=== PATIENT | male | born 1935 | race Caucasian/White ===

== ENCOUNTER 2018-10-02 16:42 | Inpatient (IN) | payer MEDICARE ==
[2018-10-02] MEDS ORDERED: Atropine Sulfate 1 mg/10 ml Syringe ONE (17:05)
[2018-10-02 17:21] LABS: #Basophils 0.1 thou/uL (0.0-0.2); #Eosinphils 0.2 thou/uL (0.0-0.7); #Monocytes 0.8 thou/uL (0.11-0.59); #Neutrophils 3.3 thou/uL (1.40-6.50); %Basophils 1.7 % (0.0-1.0); %Eosinophils 2.7 % (0.0-10.0); %Lymphocytes 30.6 % (21.0-51.0); %Monocytes 12.8 % (0.0-10.0); %Neutrophils 52.2 % (42.0-75.0); Hemoglobin 16.3 g/dL (14.0-18.0); Mean Corpuscular HGB CONC 33.7 g/dL (32.0-36.0); Mean Corpuscular Volume 98.1 fL (78.0-98.0); Mean Platelet Volume 8.3 fL (7.4-10.4); Platelet Count 190 thou/uL (130-400); RBC Distribution Width 11.7 % (11.5-14.5); Red Blood Cell (RBC) Count 4.93 mill/uL (4.70-6.10); White Blood Cell (WBC) Count 6.4 thou/uL (4.8-10.8)
[2018-10-02 17:46] LABS: ALT (SGPT) 23 U/L (8-55); AST (SGOT) 40 U/L (5-34); Albumin 4.6 g/dL (3.4-4.8); Alkaline Phosphatase 81 U/L (40-150); Anion Gap 14 mmol/L (10-20); BUN (Urea Nitrogen) 28 mg/dL (8.4-25.7); Bilirubin, Total 1.2 mg/dL (0.2-1.2); CK (CPK) 557 U/L (30-200); Calc. Creatinine Clearance 0 mL/min (70-130); Carbon Dioxide 26 mmol/L (23-31); Chloride 103 mmol/L (98-107); Estimated GFR-MDRD 55; Globulin 2.7 g/dL (2.4-3.5); Glucose 100 mg/dL (83-110); Potassium 3.7 mmol/L (3.5-5.1); Protein, Total 7.3 g/dL (5.8-8.1); Sodium 139 mmol/L (136-145)
[2018-10-02 17:48] LABS: Troponin I Less than 0.010 ng/mL (< 0.028)
[2018-10-02 17:54] LABS: CKMB 14.6 ng/mL (0-6.6)
[2018-10-02] MEDS ORDERED: Acetaminophen 325 MG TAB PO PRN (18:47)
[2018-10-02] MEDS ORDERED: Atropine Sulfate 0.4 mg/1 ml Vial IVP PRN (18:49)
--- NOTE | 2018-10-02 19:42 | RAD ---
PORTABLE UPRIGHT FRONTAL CHEST RADIOGRAPH: 10/02/18 COMPARISON: 07/24/09 HISTORY: Bradycardia. FINDINGS: The patient is imaged in a lordotic position. Heart and mediastinal contours are stable. Mild increas ed linear interstitial density noted with no pneumothorax, pleural fluid, focal consolidation or alve olar edema. IMPRESSION: No focal consolidation or alveolar edema. POS: [facility]
[2018-10-02 19:56] LABS: Troponin I Less than 0.010 ng/mL (< 0.028)
[2018-10-02 19:58] LABS: CKMB 11.4 ng/mL (0-6.6); Critical Call CKMBM RESULT DECREASING
--- NOTE | 2018-10-02 22:21 | HP ---
HISTORY OF PRESENT ILLNESS: The patient is a very pleasant 83-year-old male with history of coronary artery disease status post stents x6, last stent about a year ago and also history of hypertension, who presents to the hospital with complaints of generalized weakness. The patient stated that he was in his good state of health yesterday; however, today he started having some generalized weakness, f elt unsteady and not like himself. Denied any palpitation, any chest pressure or chest pain or any d izziness. At this time, patient checked his blood pressure and found his heart rate to be in the 30s . He rechecked it again it was 31. At this time, the patient's brought him to the hospital for further evaluation. The patient stated that he did have some mild non lasting shortness of breath y esterday. He thought this was secondary to sinus issues and he took a nasal spray which resolved his problem. PAST MEDICAL HISTORY: Hypertension, coronary artery disease, stents x6, he has some chronic back kosta n. PAST SURGICAL HISTORY: He has had a hernia repair on the right side and stents. ALLERGIES: No known drug allergies. MEDICATIONS: He takes lisinopril and hydrochlorothiazide 10/12.5 mg daily, pantoprazole 40 mg daily, atorvastatin 20 mg daily, Plavix 75 mg daily, aspirin 81 mg daily. FAMILY HISTORY: No history of heart disease. Father lived to be at 101. SOCIAL HISTORY: Denies any alcohol use or drug use. He did smoke when he was 14; however, this was just socially. CODE STATUS: He is a FULL CODE per patient and patient's . REVIEW OF SYSTEMS: All negative except for the ones mentioned above in the HPI. PHYSICAL EXAMINATION: VITAL SIGNS: Temperature of 98.8, blood pressure 140/84 and his pulse is about 64 currently. GENERAL: He is awake, alert, oriented x3, does not appear in any distress. CARDIOVASCULAR: S1, S2 present. No murmurs, rubs, or gallops. LUNGS: Clear to auscultation, rhonchi or wheezes noted. ABDOMEN: Soft, nontender. Bowel sounds are present x2. EXTREMITIES: No edema. Pedal pulses are present x2. SKIN: No cuts, lesions, or bruises noted. NEUROLOGIC: Neurovascular kelley, no focal deficits noted. LABORATORY RESULTS: As of the following: WBC of 6.4, hemoglobin 16.3, hematocrit of 48.3, platelets of 190. Chemistry: Sodium of 139, potassium of 3.7, BUN of 20, creatinine 1.25. AST is mildly nisa vated at 40, ALT is 23. His CK-MB is 14.6. His troponin x1 is negative. He did have an EKG initial ly which indicated a very low voltage and bigeminy and indicated a possible left atrial enlargement. ED COURSE: The patient did receive atropine, which did increase his heart rate to about in the 90s. However, currently when I was in the room assessing the patient, he is going back down into the 60s. ASSESSMENT AND PLAN: The patient is a very pleasant 83-year-old male who presents to the hospital wi th complaints of generalized weakness. 1. Symptomatic bradycardia. We will admit the patient to IMCU since after the atropine his heart ra te now continues to dip down into the low 60s. He is currently asymptomatic. We will also order radha e atropine p.r.n. I did contact the single ending machine operator continuous crusher operator, who discussed the case with this patient. We will order an echocardiogram. We will trend the troponins. The patient currently is asymptomati c. He does not have any chest pain either and he is not feeling any weakness or any palpitations. 2. Coronary artery disease. We will continue patient's aspirin and Plavix. 3. Hyperlipidemia. We will also continue patient's statin. 4. Deep venous thrombosis prophylaxis. We will put patient on subcu heparin.
[2018-10-02] MEDS: Heparin 5,000 UNITS/ML VIAL SC SCH (23:08)
[2018-10-02] MEDS: Sodium Chloride 0.9% 1,000 ML IV SCH (23:08)
[2018-10-02] MEDS: Atorvastatin Calcium 20 MG TAB PO SCH (23:09)
[2018-10-02 23:24] LABS: Troponin I Less than 0.010 ng/mL (< 0.028)
[2018-10-02 23:25] LABS: CKMB 10.6 ng/mL (0-6.6); Critical Call CKMBM RESULT DECREASING
[2018-10-03 00:49] VITALS: BMI 23.0
[2018-10-03 04:58] LABS: #Basophils 0.1 thou/uL (0.0-0.2); #Eosinphils 0.2 thou/uL (0.0-0.7); #Lymphocytes 1.6 thou/uL (1.20-3.40); #Monocytes 0.6 thou/uL (0.11-0.59); #Neutrophils 2.6 thou/uL (1.40-6.50); %Basophils 1.5 % (0.0-1.0); %Lymphocytes 31.6 % (21.0-51.0); %Monocytes 11.7 % (0.0-10.0); %Neutrophils 51.1 % (42.0-75.0); Hemoglobin 14.8 g/dL (14.0-18.0); Mean Corpuscular HGB CONC 34.3 g/dL (32.0-36.0); Mean Corpuscular Hemoglobin 33.6 pg (27.0-31.0); Mean Platelet Volume 8.3 fL (7.4-10.4); Platelet Count 166 thou/uL (130-400); RBC Distribution Width 11.5 % (11.5-14.5); Red Blood Cell (RBC) Count 4.39 mill/uL (4.70-6.10); White Blood Cell (WBC) Count 5.1 thou/uL (4.8-10.8)
[2018-10-03 05:13] LABS: Anion Gap 10 mmol/L (10-20); BUN (Urea Nitrogen) 22 mg/dL (8.4-25.7); Calc. Creatinine Clearance 67 mL/min (70-130); Calcium 8.9 mg/dL (7.8-10.44); Carbon Dioxide 25 mmol/L (23-31); Chloride 107 mmol/L (98-107); Estimated GFR-MDRD 76; Glucose 91 mg/dL (83-110); Potassium 3.8 mmol/L (3.5-5.1); Sodium 138 mmol/L (136-145)
[2018-10-03] MEDS: Clopidogrel Bisulfate 75 MG TAB PO SCH (10:06)
[2018-10-03] MEDS: Heparin 5,000 UNITS/ML VIAL SC SCH ×3 (10:06→20:34)
--- NOTE | 2018-10-03 13:46 | PDOC.PN ---
- Subjective Encounter Start Date: 10/03/18 Encounter Start Time: 11:15 Subjective: pt up in bed no complains,no event in am - Objective Resuscitation Status: Resuscitation Status FULL:Full Resuscitation Vital Signs & Weight: Vital Signs (12 hours) Temp Pulse Resp BP Pulse Ox 10/03/18 12:05 97.6 F 64 21 H 137/79 95 10/03/18 08:00 96 10/03/18 07:36 97.8 F 55 L 19 144/73 H 96 10/03/18 04:35 98.1 F 54 L 14 131/71 95 Weight Weight 174 lb 4.8 oz I&O: 10/02/18 10/03/18 10/04/18 06:59 06:59 06:59 Intake Total 502 720 Output Total 600 Balance -98 720 Result Diagrams: 10/03/18 04:18 10/03/18 04:19 Phys Exam - Physical Examination Neck: no nodes, no JVD, supple, full ROM Respiratory: no wheezing, no rales, no rhonchi, wheezing present, clear to auscultation bilateral Cardiovascular: RRR, no significant murmur, no rub, gallop, irregular Gastrointestinal: soft, non-tender, no distention, positive bowel sounds Dx/Plan (1) Bradycardia Code(s): R00.1 - BRADYCARDIA, UNSPECIFIED Status: Acute (2) HTN (hypertension) Code(s): I10 - ESSENTIAL (PRIMARY) HYPERTENSION Status: Acute - Plan pt going for pacemaker placement -: will hold his bp meds for now -: echo pending * . Review of Systems - Review of Systems Respiratory: negative: Cough, Dry, Shortness of Breath, Hemoptysis, SOB with Excertion, Pleuritic Pain, Sputum, Wheezing Cardiovascular: negative: chest pain, palpitations, orthopnea, paroxysmal nocturnal dyspnea, edema, light headedness, other Gastrointestinal: negative: Nausea, Vomiting, Abdominal Pain, Diarrhea, Constipation, Melena, Hematochezia, Other Genitourinary: negative: Dysuria, Frequency, Incontinence, Hematuria, Retention , Other - Medications/Allergies Allergies/Adverse Reactions: Allergies Allergy/AdvReac Type Severity Reaction Status Date / Time No Known Drug Allergies Allergy Verified 10/03/18 00:54 Medications: Current Medications Acetaminophen (Tylenol) 650 mg PO Q4H PRN PRN Reason: Headache/Fever/Mild Pain (1-3) Aspirin (Aspirin Chewable) 81 mg PO DAILY [facility] Last Admin: 10/03/18 10:06 Dose: 81 mg Atorvastatin Calcium (Lipitor) 20 mg PO HS [facility] Last Admin: 10/02/18 23:09 Dose: 20 mg Atropine Sulfate (Atropine) 0.4 mg IVP Q4H PRN PRN Reason: Cardiac Arrythmia Clopidogrel Bisulfate (Plavix) 75 mg PO DAILY [facility] Last Admin: 10/03/18 10:06 Dose: 75 mg Heparin Sodium (Porcine) (Heparin) 5,000 units SC TID [facility] Last Admin: 10/03/18 10:06 Dose: 5,000 units Sodium Chloride (Normal Saline 0.9%) 1,000 mls @ 50 mls/hr IV .Q20H [facility] Last Admin: 10/02/18 23:08 Dose: 1,000 mls Sodium Chloride (Flush - Normal Saline) 10 ml IVF Q12HR [facility] Last Admin: 10/03/18 10:08 Dose: Not Given Sodium Chloride (Flush - Normal Saline) 10 ml IVF PRN PRN PRN Reason: Saline Flush Sodium Chloride (Flush - Normal Saline) 10 ml IVF Q12HR [facility] Sodium Chloride (Flush - Normal Saline) 10 ml IVF PRN PRN PRN Reason: Saline Flush
--- NOTE | 2018-10-03 14:26 | CON ---
DATE OF CONSULTATION: 10/03/2018 DATE OF ADMISSION: 10/02/2018 INDICATION FOR CONSULTATION: An 83-year-old gentleman with symptomatic bradycardia. HISTORY OF PRESENT ILLNESS: This is a very pleasant 83-year-old gentleman, who has not been feeling well for the last couple of days slow, had some shortness of breath. He has felt just weak. Pricilla lan noticed it at home, he took his heart rate, and his heart rate was in the 30s. He then prese nted to the emergency room. He does have a history of myocardial infarction in the past and undergon e angioplasty and stent placement at age 66 and most recent stents were approximately 1 year ago. He has previously been followed in [place] by solar hot water installer, Dr. Hernandes, but has moved here several months ago and has not yet seen a solar hot water installer. On arrival here, his laboratory data did show an nisa vated CPK, but the cardiac enzyme, the troponin I, was negative. The MB was 14.6 and decreased to 11 .4 and then now is down to 10.6. His CK was 557. He denies any chest pain. His EKG does not show a ny acute ST-segment changes, but does show a sinus rhythm with a bigeminal-type pattern with PVCs. T his morning, his EKG shows more of a sinus rhythm with just occasional PVCs. Heart rates in the 60s. PAST MEDICAL HISTORY: Significant for the myocardial infarction, angioplasty, and stent placements. We are uncertain as to which vessels underwent angioplasty and stent placement. We will try to obta in those records. He has had a hernia repair. He has gastroesophageal reflux disease, hiatal hernia , benign prostatic hypertrophy. He has history of hypertension and hypercholesterolemia. MEDICATIONS: Include lisinopril/hydrochlorothiazide, Protonix, atorvastatin, Plavix, aspirin, and Co Q10. SOCIAL HISTORY: He has no history of alcohol or tobacco abuse. He is retired. FAMILY HISTORY: Noncontributory. ALLERGIES: None. REVIEW OF SYSTEMS: He wears glasses, has dentures, has sinus problems. Otherwise, 12-point review o f systems is unremarkable except what was noted in the history of present illness. PHYSICAL EXAMINATION: GENERAL: Reveals a very pleasant, well-developed, well-nourished gentleman, who is in no acute distr ess at this time. He is eating breakfast and he had no complaints of chest pain, dizziness, or light headed. VITAL SIGNS: Blood pressure is 144/73, heart rate in the 50s and 60s and shows a sinus rhythm with o ccasional PVCs, respiratory rate is 14-19, O2 saturation 96%. He is afebrile. HEENT EXAM: Shows head to be normocephalic and atraumatic. Carotid pulses are present. I did not h ear any bruits. CHEST: Clear to auscultation without rales, rhonchi, or wheezing. CARDIOVASCULAR: Exam reveals a bradycardia, regular rhythm with occasional ectopy. There were no gr oss murmurs, heaves, thrills, bruits, or rubs. ABDOMINAL EXAM: Soft and nontender with positive bowel sounds. No organomegaly or masses noted. Fe moral pulses are present. EXTREMITIES: Show no clubbing, cyanosis or edema. Pedal pulses are present. NEUROLOGIC: The patient is fully intact. SKIN: Warm and dry. EKG shows sinus bradycardia as noted above with bigeminal PVCs without evidence of ischemia. ASSESSMENT AND PLAN: 1. We will follow the patient very carefully. He most likely will need to undergo pacemaker inserti on. He was not on any beta blockers or any other medicines. I am going to admit making him have sig nificant bradycardia. He appears to have symptomatic bradycardia. We will obtain an echocardiogram with ejection fraction is less than 35%-40% and he best be served by undergoing AICD if he has a decr ease in left ventricular function. If not, then most likely he will need to just undergo pacemaker i nsertion due to the symptomatic bradycardia. His AK interval is not very prolonged, so hopefully, th e patient would have atrial pacing and ventricular sensing during the bradycardia. We reviewed his m edications and further recommendations will depend on the echocardiogram. 2. History of hypertension. This is under good control at this time. We will continue the present medications. 3. History of hypercholesterolemia. He is on Lipitor. Uncertain as to whether or not the elevated CK may be due to some type of myopathy or muscle breakdown due to the statins. We may need to hold h is medication to see how he does, but did not have any particular reason. He was not doing any signi ficant physical exertion to cause an elevated CK with, but the cardiac enzyme, the troponin I, remain s negative. 2. History of gastroesophageal reflux disease. We will continue his Protonix. Further recommendati ons will depend on the results of the echocardiogram. We will try to obtain records from his prior c ardiologist in [place].
[2018-10-03] MEDS ORDERED: CEFAZOLIN 1 GM VIAL ONE (14:30)
[2018-10-03] MEDS ORDERED: Lidocaine 1% (PF) 30 ML VIAL ONE (14:30)
[2018-10-03] MEDS ORDERED: CEFAZOLIN 2 GM/50 ML BAG ONE (14:30)
[2018-10-03] MEDS ORDERED: Gentamicin 80 MG/2 ML VIAL ONE (14:30)
[2018-10-03] MEDS: Sodium Chloride 0.9% 1,000 ML IV SCH (16:28)
[2018-10-03] MEDS ORDERED: Acetaminophen/Codeine 30-300mg Tablet PO PRN (17:59)
--- NOTE | 2018-10-03 18:27 | RAD ---
FRONTAL RADIOGRAPH CHEST: 10/03/18 COMPARISON: 10/02/18. HISTORY: Evaluate chest following cardiac device placement. FINDINGS: New left subclavian dual lead transvenous pacing device present with leads overlying the region of th e right atrium and the right ventricle. No pneumothorax or pleural fluid. No focal consolidation or alveolar edema. There is degenerative change involving bilateral shoulder joints, right greater than left. IMPRESSION: New dual lead transvenous pacing device. No pneumothorax or evidence of pulmonary edema. POS: [facility]
[2018-10-03] MEDS: Atorvastatin Calcium 20 MG TAB PO SCH (20:34)
[2018-10-04] MEDS: Sodium Chloride 0.9% 1,000 ML IV SCH (07:50)
[2018-10-04] MEDS: Heparin 5,000 UNITS/ML VIAL SC SCH (08:58)
[2018-10-04] MEDS: Clopidogrel Bisulfate 75 MG TAB PO SCH (08:58)
[2018-10-04 11:12] VITALS: TEMP 98.7
[2018-10-04 11:13] VITALS: BP 125/78
--- NOTE | 2018-10-05 10:32 | DIS ---
DATE OF ADMISSION: 10/02/2018 DATE OF DISCHARGE: 10/04/2018 DISCHARGE DIAGNOSES: 1. Symptomatic bradycardia. 2. Hypertension. HOSPITAL COURSE: The patient is a very pleasant 83-year-old male, who initially presented to the [facility] with feeling generalized weakness and also was found to have a heart rate in the 30s at home. The patient was then treated with atropine in the ER. His heart rate went up to the 70s and the 80s. He was monitored overnight and Cardiology was consulted. The patient had an echocardiogram, which indicated an EF of 50%-55%. Left atrium with [id number] dilation. The patient underwent a pac emaker placement on 10/03/2018 and he will be discharged home. He will be followed up with primary c are and Cardiology as outpatient. His medications are as of the following: Aspirin 81 mg daily, Cynthia vix 75 mg daily, atorvastatin 20 mg daily, Protonix 40 mg daily, Toprol-XL 50 mg daily. This is per Cardiology. Lisinopril 5 mg daily. Patient has been seen and examined. Vital signs are stable. I have discussed the case with patient and the patient's , who is at the bedside. The patient will be given a sling, and again, he will follow up with his primary and also with Cardiology as an outpa tient.
--- NOTE | 2018-10-07 08:17 | EKG ---
Test Reason : Blood Pressure : / mmHG Vent. Rate : 073 BPM Atrial Rate : 073 BPM P-R Int : 248 ms QRS Dur : 098 ms QT Int : 374 ms P-R-T Axes : 031 026 031 degrees QTc Int : 412 ms Atrial-paced rhythm with prolonged AV conduction Abnormal ECG When compared with ECG of 24-JUL-2009 08:12, Electronic atrial pacemaker has replaced Sinus rhythm Confirmed by DR. Gagan MOODY ([id number]) on 10/07/2018 8:17:09 AM Referred By: BLOSSOM Confirmed By:DR. Gagan MOODY
== END 2018-10-04 15:09 | disposition home or self-care (01) | DRG 244 ==
LOC: ERS 16:42 → IMCU/EMU 21:36 → 2NO 10-03 17:21
PROVIDERS: ADMIT Internal Medicine; ATTEND Internal Medicine
PROC: 0JH606Z Insertion of Pacemaker, Dual Chamber into Chest Subcutaneous Tissue and Fascia, Open Approach (ICD-10-PCS; principal; 2018-10-03)
PROC: 02H63JZ Insertion of Pacemaker Lead into Right Atrium, Percutaneous Approach (ICD-10-PCS; 2018-10-03)
PROC: 02HK3JZ Insertion of Pacemaker Lead into Right Ventricle, Percutaneous Approach (ICD-10-PCS; 2018-10-03)
DX: R00.1 Bradycardia, unspecified (principal); I10 Essential (primary) hypertension; I25.10 Atherosclerotic heart disease of native coronary artery without angina pectoris; Z95.5 Presence of coronary angioplasty implant and graft; G89.29 Other chronic pain; M54.9 Dorsalgia, unspecified; Z79.02 Long term (current) use of antithrombotics/antiplatelets; Z79.899 Other long term (current) drug therapy; Z79.82 Long term (current) use of aspirin; E78.5 Hyperlipidemia, unspecified; I25.2 Old myocardial infarction; K21.9 Gastro-esophageal reflux disease without esophagitis; K44.9 Diaphragmatic hernia without obstruction or gangrene; N40.0 Benign prostatic hyperplasia without lower urinary tract symptoms
CPT/HCPCS: 33208; 36415; 71045; 80048; 80053; 82553; 83880; 84484; 85025; 93005; 93010; 93306; 93798; 96361; 96374; C1785; C1898; J0461; J0690; J1580; J1644; J2001

== ENCOUNTER 2018-10-05 09:49 | Emergency (ER) | payer MEDICARE ==
[2018-10-05 10:36] LABS: #Eosinphils 0.1 thou/uL (0.0-0.7); #Monocytes 0.6 thou/uL (0.11-0.59); #Neutrophils 3.2 thou/uL (1.40-6.50); %Eosinophils 2.2 % (0.0-10.0); %Lymphocytes 19.7 % (21.0-51.0); %Monocytes 12.8 % (0.0-10.0); %Neutrophils 64.3 % (42.0-75.0); Hemoglobin 15.8 g/dL (14.0-18.0); Mean Corpuscular HGB CONC 33.5 g/dL (32.0-36.0); Mean Corpuscular Hemoglobin 33.2 pg (27.0-31.0); Mean Corpuscular Volume 99.2 fL (78.0-98.0); Mean Platelet Volume 8.4 fL (7.4-10.4); Platelet Count 148 thou/uL (130-400); RBC Distribution Width 11.5 % (11.5-14.5); Red Blood Cell (RBC) Count 4.75 mill/uL (4.70-6.10); White Blood Cell (WBC) Count 4.9 thou/uL (4.8-10.8)
[2018-10-05 10:58] LABS: ALT (SGPT) 17 U/L (8-55); AST (SGOT) 24 U/L (5-34); Albumin 4.1 g/dL (3.4-4.8); Alkaline Phosphatase 80 U/L (40-150); Anion Gap 11 mmol/L (10-20); BUN (Urea Nitrogen) 18 mg/dL (8.4-25.7); Bilirubin, Total 0.9 mg/dL (0.2-1.2); Calc. Creatinine Clearance 0 mL/min (70-130); Calcium 9.4 mg/dL (7.8-10.44); Carbon Dioxide 25 mmol/L (23-31); Chloride 107 mmol/L (98-107); Estimated GFR-MDRD 68; Globulin 2.6 g/dL (2.4-3.5); Glucose 105 mg/dL (83-110); Protein, Total 6.7 g/dL (5.8-8.1); Sodium 139 mmol/L (136-145)
[2018-10-05 11:02] LABS: Troponin I Less than 0.010 ng/mL (< 0.028)
[2018-10-05 11:14] LABS: CKMB 6.7 ng/mL (0-6.6); Critical Call CKMBM RESULT DECREASING
--- NOTE | 2018-10-05 12:49 | RAD ---
PORTABLE CHEST 1 VIEW: DATE: 10/05/2018. TIME: 9:21 a.m. HISTORY: Chest pain, pacemaker placement. FINDINGS: Comparison is made with the exam of 10/03/2018. Left-sided pacemaker device remains in place. The heart size is normal. The aorta is tortuous. The lungs are expanded without focal areas of consolidation, pneumothoraces, or pleural effusions. IMPRESSION: No acute process. POS: [facility]
== END 2018-10-05 13:38 | disposition home or self-care (01) ==
LOC: ERS 09:49
DX: T82.9XXA Unspecified complication of cardiac and vascular prosthetic device, implant and graft, initial encounter (principal); R00.1 Bradycardia, unspecified; Z95.0 Presence of cardiac pacemaker; I10 Essential (primary) hypertension; I25.2 Old myocardial infarction; N40.0 Benign prostatic hyperplasia without lower urinary tract symptoms; Z79.82 Long term (current) use of aspirin; Z79.899 Other long term (current) drug therapy
CPT/HCPCS: 71045; 80053; 82553; 84484; 85025; 93005

== ENCOUNTER 2018-11-09 11:55 | Emergency (ER) | payer MEDICARE ==
[2018-11-09 12:35] LABS: Bilirubin Small (Negative); Blood, Urine Large (Negative); Clarity TURBID (Clear); Glucose, Urine (Dipstick) Negative (Negative); Leukocyte Small (Negative); Nitrite Negative (Negative); Protein, Urine (Dipstick) 30 mg/dL (Neg-Trace); Specific Gravity, Urine 1.021 (1.002-1.036); Urobilinogen 0.2 mg/dL (0.2-1.0); pH, Urine 5.5 (5.0-9.0)
[2018-11-09 12:37] LABS: Bacteria/HPF None Seen HPF (None Seen); Hyaline Casts/LPF 0-3 HYALINE CAST LPF (0-3 Hyaline); RBC/HPF GREATER THAN 50-TNTC HPF (0-3); Squamous Epithelial 0-3 HPF (0-3)
== END 2018-11-09 13:30 | disposition home or self-care (01) ==
LOC: ERS 11:55
DX: R31.9 Hematuria, unspecified (principal); E78.5 Hyperlipidemia, unspecified; I25.2 Old myocardial infarction; N40.0 Benign prostatic hyperplasia without lower urinary tract symptoms; Z79.82 Long term (current) use of aspirin; Z79.899 Other long term (current) drug therapy
CPT/HCPCS: 81003; 81015

== ENCOUNTER 2018-11-09 17:44 | Emergency (ER) | payer MEDICARE ==
[2018-11-09 18:58] LABS: Hemoglobin 14.9 g/dL (14.0-18.0); Mean Corpuscular Hemoglobin 34.3 pg (27.0-31.0); Mean Corpuscular Volume 98.2 fL (78.0-98.0); Mean Platelet Volume 7.8 fL (7.4-10.4); Platelet Count 157 thou/uL (130-400); RBC Distribution Width 11.8 % (11.5-14.5); Red Blood Cell (RBC) Count 4.34 mill/uL (4.70-6.10); White Blood Cell (WBC) Count 6.2 thou/uL (4.8-10.8)
[2018-11-09 19:06] LABS: Anion Gap 11 mmol/L (10-20); BUN (Urea Nitrogen) 19 mg/dL (8.4-25.7); Calc. Creatinine Clearance 0 mL/min (70-130); Calcium 9.1 mg/dL (7.8-10.44); Carbon Dioxide 24 mmol/L (23-31); Chloride 105 mmol/L (98-107); Estimated GFR-MDRD 68; Glucose 99 mg/dL (83-110); Potassium 4.3 mmol/L (3.5-5.1); Sodium 136 mmol/L (136-145)
[2018-11-09 19:22] LABS: Lymphocytes 10 % (21-51); MDiff Complete? YES; Monocytes 5 % (0-10); Neutrophil 85 % (42-75); PLT Morphology Comment Appears Adequate
--- NOTE | 2018-11-09 21:13 | CT ---
CT ABDOMEN AND PELVIS WITH CONTRAST: Comparison: None. History: Hematuria. Technique: Multiple contiguous axial images were obtained in a CT of the abdomen and pelvis with cont rast. Coronal reformats were performed. FINDINGS: There are hyperdensities in the kidneys measuring up to 5.7 cm in size which represent cysts. There a ppear to be nonobstructing calcifications in the lower pole of the left kidney measuring up to 5 mm i n size. No calcifications are seen in either ureter or urinary bladder. The urinary bladder is unrema rkable. The liver, gallbladder, adrenal glands, spleen, and pancreas are unremarkable. There are scattered diverticula in the colon. The small bowel is unremarkable. Atherosclerotic calcif ications are seen in the aorta. There is a well circumscribed low density mass in the right retroperi toneum with a mean Hounsfield unit value of 10. These are nonspecific but could represent an enlarged lymph node. Alternatively, this could represent diverticulum emanating from the duodenum. Degenerative changes are seen in the spine. The visualized inferior thorax and abdominal wall soft ti ssues are unremarkable. IMPRESSION: 1. Bilateral renal cysts. 2. Diverticulosis. 3. Nonspecific low density retroperitoneal mass. This could represent an enlarged lymph node or a div erticulum emanating from small bowel. POS: [facility]
== END 2018-11-09 20:47 | disposition home or self-care (01) ==
LOC: ERS 17:44
DX: N28.1 Cyst of kidney, acquired (principal); N20.0 Calculus of kidney; E78.5 Hyperlipidemia, unspecified; I10 Essential (primary) hypertension; I25.2 Old myocardial infarction; N40.0 Benign prostatic hyperplasia without lower urinary tract symptoms; Z79.82 Long term (current) use of aspirin; Z79.899 Other long term (current) drug therapy
CPT/HCPCS: 36415; 74177; 80048; 81003; 81015; 85007; 85027; 99283

== ENCOUNTER 2019-02-12 16:10 | Outpatient (CLI) | payer MEDICARE ==
--- NOTE | 2019-02-12 16:35 | RAD ---
FExam: 3 views of lumbar spine HISTORY: Months of low back pain, running down the left leg. COMPARISON: None FINDINGS: 6 lumbar type vertebral bodies. Lumbar spine vertebral body height is maintained. No fractu re. Moderate to severe degenerative disc disease at L5-L6. There is vacuum disc phenomenon. Mild hype rtrophic changes in the posterior elements at L5-L6 and L6-S1. Vacuum disc phenomenon at the L1-L2 level. Loss of disc space height and osteophyte formation in the distal thoracic spine. No spondylolisthesis or spondylolysis. IMPRESSION: Degenerative changes of lumbar spine as above. MRI if clinically warranted.
--- NOTE | 2019-02-12 16:59 | RAD ---
LEFT HIP TWO VIEWS: 02/12/19 INDICATION: Left hip pain for six months. COMPARISON: None. FINDINGS: There is mild degenerative arthrosis of the left hip. No acute fracture or subluxation is evident. IMPRESSION: No acute osseous abnormality. POS: [facility]
== END 2019-02-12 16:11 | disposition home or self-care (01) ==
LOC: BICRAD 16:10
PROVIDERS: ATTEND Family Medicine
DX: M54.5 Low back pain (principal); M25.552 Pain in left hip; M47.816 Spondylosis without myelopathy or radiculopathy, lumbar region
CPT/HCPCS: 72100

== ENCOUNTER 2019-04-13 10:17 | Outpatient (CLI) | payer MEDICARE ==
--- NOTE | 2019-04-13 14:27 | NM ---
NM Bone Scan STANDARD: 04/13/2019 11:00 AM CLINICAL INDICATION: Prostate cancer. COMPARISON: None. RADIOPHARMACEUTICAL: 25 mCi Tc 99M MDP FINDINGS: Bone lesions: Focal abnormal increased radiotracer activity localizes to the right shoulder. There is abnormal increased scintigraphic activity at the medial aspect of the right foot. Other findings: Degenerative activity is present at the axial and appendicular skeleton. IMPRESSION: Increased scintigraphic activity of the right shoulder. In addition, there is abnormal increased radi otracer localization to the medial aspect of the right foot. Given history and multifocality, the possibility of osseous metastatic disease is not excluded. For further anatomic delineation, recommdane d dedicated radiographic views of the right shoulder and of the right foot with attention to these regions..
== END 2019-04-13 10:18 | disposition home or self-care (01) ==
LOC: NM 10:17
PROVIDERS: ATTEND Urology
DX: C61 Malignant neoplasm of prostate (principal)
CPT/HCPCS: 78306; A9503

== ENCOUNTER 2019-04-13 10:22 | Outpatient (CLI) | payer OTHER ==
[~2019-04-13 10:22] MED LIST: Iopamidol 370 76% 100 ML VIAL ONE; Iopamidol 370 76% 50 ML VIAL FS ONE
--- NOTE | 2019-04-13 13:36 | CT ---
Contrast-enhanced images of abdomen pelvis. HISTORY: Prostate cancer. Contrast enhanced images of the abdomen pelvis demonstrate the lung bases to be unremarkable. Intracardiac pacing leads seen. The liver and spleen are unremarkable. Gallbladder and pancreas unremarkable. Adrenal glands and kidneys demonstrate no evidence of masses. Bilateral renal renal cortical cyst see n in the lower poles. No evidence of periaortic lymphadenopathy seen. Previously noted retroperitoneal pericaval density is slightly smaller than on the previous compariso n exam. The small bowel is unremarkable. A normal appendix is visualized. Numerous descending and sigmoid colonic diverticuli are present. There is a surgical defect seen within the central prostatic body. No significant evidence of inguinal, umbilical hernia seen. IMPRESSION: postsurgical changes seen in the prostate bed.
== END 2019-04-13 10:23 | disposition home or self-care (01) ==
LOC: CT 10:22
PROVIDERS: ATTEND Family Medicine
DX: M54.5 Low back pain (principal); M25.559 Pain in unspecified hip; Z98.890 Other specified postprocedural states
CPT/HCPCS: 74177; Q9967

== ENCOUNTER 2019-04-30 13:20 | Outpatient (CLI) | payer MEDICARE ==
--- NOTE | 2019-04-30 14:05 | CT ---
Lumbar spine CT without contrast: 04/30/2019 COMPARISON: None HISTORY: Back pain and hip pain TECHNIQUE: Axial CT imaging through the lumbar spine at 2.5 mm intervals without contrast. Coronal an d sagittal reformatted imaging obtained. FINDINGS: Evaluation for central canal and/or neural foraminal stenosis is limited on routine CT. There are partially imaged cyst within both kidneys. There is a mildly enlarged lymph node to the rig ht of the IVC on axial image 57 measuring 1.4 cm in short axis dimension area. This is better evaluated on recent CT of the abdomen and pelvis performed 04/13/2019. There is no significant anterolisthesis or retrolisthesis seen within the lumbar spine. T11-12: Disc space narrowing, degenerative endplate change, and anterior osteophyte formation noted w ith no osseous cause of significant central canal or neural foraminal stenosis. T12-L1: There is a very small central disc osteophyte complex. No associated central canal stenosis. No significant neural foraminal stenosis. Vacuum disc formation and anterior osteophyte formation noted. L1-2: Small disc osteophyte complex. Disc space narrowing, vacuum disc formation, and degenerative en dplate change present. Mild bilateral facet hypertrophy with mild bilateral neural foraminal stenosis. L2-3: There is disc space narrowing and vacuum disc formation with bilateral facet hypertrophy. Small disc osteophyte complex present. Probable mild central canal stenosis and mild bilateral neural foraminal stenosis. L3-4: There is disc bulge. There is bilateral facet hypertrophy and hypertrophy of the ligamentum fla vum. Severe central canal stenosis is suspected. Mild/moderate bilateral neural foraminal stenosis noted L4-5: Disc space narrowing and vacuum disc formation. Bilateral facet hypertrophy. Moderate/severe bi lateral neural foraminal stenosis, left greater than right. No osseous cause of significant central canal stenosis L5-S1: Bilateral facet hypertrophy with moderate bilateral neural foraminal stenosis. Mild disc bulge . No worrisome lytic or blastic bone lesion. There is scattered atherosclerotic calcification of the abdominal aorta and its branches. IMPRESSION: Multilevel degenerative change as detailed above, most prominent at L3-4. CT myelogram ma y be beneficial for full assessment.
== END 2019-04-30 13:21 | disposition home or self-care (01) ==
LOC: CT 13:20
PROVIDERS: ATTEND Family Medicine
DX: M54.5 Low back pain (principal); M25.559 Pain in unspecified hip; M47.816 Spondylosis without myelopathy or radiculopathy, lumbar region
CPT/HCPCS: 72131

== ENCOUNTER 2020-12-08 09:07 | Outpatient (CLI) | payer MEDICARE ==
--- NOTE | 2020-12-08 13:02 | NM ---
Whole body bone scan: 12/08/2020 COMPARISON: 04/13/2019 HISTORY: Prostate cancer TECHNIQUE: Anterior and posterior whole-body imaging obtained following the intravenous administratio n of 30.7 mCi technetium 99m labeled MDP FINDINGS: Physiologic activity is seen in the region of the kidneys and urinary bladder. There is a f ocal area of prominent increased radiotracer activity within the medial aspect of the right foot in the expected location of the metatarsal phalangeal joint. This is stable when compared to the 2019 ex am. There is severe/prominent increased radiotracer activity in the region of the right shoulder which ap pears stable when compared to the 2019 exam as well. No calvarial lesion, rib lesion, or spine lesion. No pelvic lesion. Increased radiotracer activity in the region of the left knee again noted. IMPRESSION: Stable whole body bone scan. Prominent stable radiotracer activity within the medial aspe ct of the right foot and right shoulder. Recommend correlation with radiographs. Degenerative change or prior trauma is favored given stability.
== END 2020-12-08 09:08 | disposition home or self-care (01) ==
LOC: NM 09:07
PROVIDERS: ATTEND Urology
DX: C61 Malignant neoplasm of prostate (principal)
CPT/HCPCS: 78306; A9503

== ENCOUNTER 2022-12-03 01:16 | Emergency (ER) | payer MEDICARE ==
[2022-12-03 03:06] LABS: Clarity Clear (Clear)
[2022-12-03 03:07] LABS: Bilirubin Unable to Interpret (Negative); Blood, Urine Unable to Interpret (Negative); Glucose, Urine (Dipstick) Unable to Interpret mg/dL (Negative); Ketone, Urine Unable to Interpret mg/dL (Negative); Leukocyte Unable to Interpret Leu/uL (Negative); Nitrite Unable to Interpret (Negative); Protein, Urine (Dipstick) Unable to Interpret mg/dL (Neg-Trace); Specific Gravity, Urine 1.028 (1.002-1.036); Urobilinogen UNABLE TO INTERPRET mg/dL (Less than 2); pH, Urine 5.6 (5.0-9.0)
[2022-12-03 03:14] LABS: Bacteria/HPF 2+ HPF (None Seen); RBC/HPF 0-3 HPF (0-3); Squamous Epithelial 0-3 HPF (0-3)
[2022-12-03 03:15] LABS: Calcium Oxalate Crystals 1+ HPF (None Seen)
[2022-12-03 04:59] LABS: ALT (SGPT) 14 U/L (8-55); AST (SGOT) 18 U/L (5-34); Albumin 3.9 g/dL (3.4-4.8); Alkaline Phosphatase 84 U/L (40-110); Anion Gap 12 mmol/L (10-20); BUN (Urea Nitrogen) 20 mg/dL (8.4-25.7); Bilirubin, Total 0.6 mg/dL (0.2-1.2); Calc. Creatinine Clearance 0 mL/min (70-130); Calcium 9.2 mg/dL (7.8-10.44); Carbon Dioxide 24 mmol/L (23-31); Chloride 107 mmol/L (98-107); Estimated GFR 79; Globulin 2.4 g/dL (2.4-3.5); Glucose 98 mg/dL (83-110); Potassium 4.1 mmol/L (3.5-5.1); Protein, Total 6.3 g/dL (5.8-8.1); Sodium 139 mmol/L (136-145)
== END 2022-12-03 05:30 | disposition home or self-care (01) ==
LOC: ERS 01:16
DX: R33.9 Retention of urine, unspecified (principal); I10 Essential (primary) hypertension; E78.5 Hyperlipidemia, unspecified; Z79.899 Other long term (current) drug therapy; Z79.82 Long term (current) use of aspirin
CPT/HCPCS: 36415; 51702; 80053; 81003; 81015; 87086

== ENCOUNTER 2023-02-15 21:28 | Emergency (ER) | payer MEDICARE ==
[~2023-02-15 21:28] MED LIST changes: -Iopamidol 370 76% 100 ML VIAL ONE; -Iopamidol 370 76% 50 ML VIAL FS ONE; +Iopamidol-370 76% 500 ML MDV (1 ML CHARGE) ONE
[2023-02-15 22:22] LABS: #Eosinphils 0.2 thou/uL (0.0-0.7); #Monocytes 0.6 thou/uL (0.11-0.59); #Neutrophils 3.3 thou/uL (1.40-6.50); %Basophils 0.9 % (0.0-1.0); %Eosinophils 4.5 % (0.0-10.0); %Lymphocytes 18.5 % (21.0-51.0); %Monocytes 11.9 % (0.0-10.0); %Neutrophils 64.2 % (42.0-75.0); Hemoglobin 13.3 g/dL (14.0-18.0); Mean Corpuscular HGB CONC 34.2 g/dL (32.0-36.0); Mean Corpuscular Hemoglobin 35.2 pg (27.0-31.0); Mean Platelet Volume 7.1 fL (7.4-10.4); Platelet Count 168 10x3/uL (130-400); Red Blood Cell (RBC) Count 3.76 mill/uL (4.70-6.10); White Blood Cell (WBC) Count 5.1 10x3/uL (4.8-10.8)
[2023-02-15 22:41] LABS: ALT (SGPT) 19 U/L (8-55); AST (SGOT) 22 U/L (5-34); Albumin 3.8 g/dL (3.4-4.8); Alkaline Phosphatase 75 U/L (40-110); Anion Gap 11 mmol/L (10-20); BUN (Urea Nitrogen) 19 mg/dL (8.4-25.7); Bilirubin, Total 0.7 mg/dL (0.2-1.2); Calc. Creatinine Clearance 0 mL/min (70-130); Calcium 9.5 mg/dL (7.8-10.44); Carbon Dioxide 25 mmol/L (23-31); Chloride 105 mmol/L (98-107); Estimated GFR 57; Globulin 2.3 g/dL (2.4-3.5); Glucose 109 mg/dL (83-110); Lipase 21 U/L (8-78); Potassium 4.3 mmol/L (3.5-5.1); Protein, Total 6.1 g/dL (5.8-8.1); Sodium 137 mmol/L (136-145)
[2023-02-15 22:45] LABS: Bilirubin Negative (Negative); Blood, Urine Negative (Negative); Clarity Clear (Clear); Glucose, Urine (Dipstick) Normal (Negative); Ketone, Urine Negative (Negative); Leukocyte Negative Leu/uL (Negative); Nitrite Negative (Negative); Protein, Urine (Dipstick) Negative (Neg-Trace); Specific Gravity, Urine 1.011 (1.002-1.036); Urobilinogen Normal mg/dL (Less than 2); pH, Urine 6.5 (5.0-9.0)
== END 2023-02-16 02:31 | disposition home or self-care (01) ==
LOC: ERS 21:28
DX: I10 Essential (primary) hypertension (principal); E78.5 Hyperlipidemia, unspecified; Z79.82 Long term (current) use of aspirin; Z79.899 Other long term (current) drug therapy
CPT/HCPCS: 36415; 71045; 74177; 80053; 81003; 83690; 83880; 84484; 85025; 93005; Q9967

== ENCOUNTER 2023-09-17 15:56 | Inpatient (IN) | payer MEDICARE ==
[2023-09-17 17:07] LABS: #Monocytes 1.1 thou/uL (0.11-0.59); #Neutrophils 9.9 thou/uL (1.40-6.50); %Basophils 0.3 % (0.0-1.0); %Eosinophils 0.2 % (0.0-10.0); %Lymphocytes 9.1 % (21.0-51.0); %Monocytes 9.3 % (0.0-10.0); %Neutrophils 80.5 % (42.0-75.0); Hemoglobin 13.3 g/dL (14.0-18.0); Mean Corpuscular HGB CONC 34.1 g/dL (32.0-36.0); Mean Corpuscular Hemoglobin 34.1 pg (27.0-31.0); Mean Platelet Volume 9.8 fL (7.4-10.4); Platelet Count 142 10x3/uL (130-400); RBC Distribution Width 13.2 % (11.5-14.5); White Blood Cell (WBC) Count 12.3 10x3/uL (4.8-10.8)
[2023-09-17] MEDS ORDERED: Cefepime 2 GM VIAL ONE (17:16)
[2023-09-17 17:21] LABS: INR-International Normal Ratio 1.2; Prothrombin Time 15.9 sec (12.0-14.7)
[2023-09-17 17:22] LABS: PTT 39.8 sec (22.9-36.1)
[2023-09-17 17:23] LABS: D-Dimer Test 1.29 *mcg/mL (0.27-0.43)
[2023-09-17 17:29] LABS: ALT (SGPT) 12 U/L (8-55); AST (SGOT) 17 U/L (5-34); Albumin 3.9 g/dL (3.4-4.8); Alkaline Phosphatase 66 U/L (40-110); Anion Gap 12 mmol/L (10-20); BUN (Urea Nitrogen) 15 mg/dL (8.4-25.7); Calc. Creatinine Clearance 0 mL/min (70-130); Calcium 8.9 mg/dL (7.8-10.44); Carbon Dioxide 22 mmol/L (23-31); Chloride 104 mmol/L (98-107); Estimated GFR 66; Globulin 2.2 g/dL (2.4-3.5); Glucose 103 mg/dL (83-110); Potassium 3.6 mmol/L (3.5-5.1); Protein, Total 6.1 g/dL (5.8-8.1); Sodium 134 mmol/L (136-145)
[2023-09-17] MEDS ORDERED: Vancomycin 1 GM/200 ML (FROZEN) BAG ONE (17:51)
[2023-09-17] MEDS ORDERED: Guaifenesin DM 100-10/5 ML UDCUP PO PRN (17:54)
[2023-09-17] MEDS ORDERED: Senokot S 8.6-50 MG TAB PO PRN (17:54)
[2023-09-17] MEDS ORDERED: Ondansetron PF 4 MG/2 ML Vial IVP PRN (17:54)
[2023-09-17] MEDS ORDERED: Calcium Carbonate 500 MG ChewTAB PO PRN (17:54)
[2023-09-17] MEDS ORDERED: Acetaminophen 325 MG TAB PO PRN (17:54)
[2023-09-17] MEDS ORDERED: HYDROcodone/Acetaminophen 5/325 mg Tablet PO PRN (17:54)
[2023-09-17] MEDS ORDERED: Piperacillin/Tazobactam 3.375 GM in Sodium Chloride 0.9% 100 ML IVPB SCH ×2 (18:15→20:00)
[2023-09-17 19:45] VITALS: BMI 25.7
[2023-09-17] MEDS ORDERED: Vancomycin 1 GM in Premix 1 BAG IVPB SCH ×2 (20:00→21:00)
[2023-09-17] MEDS: Famotidine 20 MG TAB PO SCH (20:04)
[2023-09-17] MEDS: Lisinopril 10 MG TAB PO SCH (20:04)
[2023-09-18] MEDS: Piperacillin/Tazobactam 3.375 GM in Sodium Chloride 0.9% 100 ML IVPB SCH ×3 (01:29→17:26)
[2023-09-18 05:50] LABS: #Eosinphils 0.1 thou/uL (0.0-0.7); #Monocytes 0.8 thou/uL (0.11-0.59); #Neutrophils 6.5 thou/uL (1.40-6.50); %Basophils 0.5 % (0.0-1.0); %Eosinophils 0.8 % (0.0-10.0); %Lymphocytes 12.8 % (21.0-51.0); %Monocytes 8.9 % (0.0-10.0); %Neutrophils 76.5 % (42.0-75.0); Hematocrit 36.9 % (42.0-52.0); Hemoglobin 12.7 g/dL (14.0-18.0); Mean Corpuscular HGB CONC 34.4 g/dL (32.0-36.0); Mean Corpuscular Hemoglobin 33.5 pg (27.0-31.0); Mean Corpuscular Volume 97.4 fl (78.0-98.0); Mean Platelet Volume 9.8 fL (7.4-10.4); Platelet Count 130 10x3/uL (130-400); Red Blood Cell (RBC) Count 3.79 mill/uL (4.70-6.10); White Blood Cell (WBC) Count 8.5 10x3/uL (4.8-10.8)
[2023-09-18 06:17] LABS: Anion Gap 9 mmol/L (10-20); BUN (Urea Nitrogen) 12 mg/dL (8.4-25.7); Calc. Creatinine Clearance 71 mL/min (70-130); Calcium 8.6 mg/dL (7.8-10.44); Carbon Dioxide 24 mmol/L (23-31); Chloride 107 mmol/L (98-107); Estimated GFR 81; Glucose 98 mg/dL (83-110); Potassium 3.6 mmol/L (3.5-5.1); Sodium 136 mmol/L (136-145)
[2023-09-18] MEDS ORDERED: FLU VACC QS2023(65UP)/MF59C/PF 60 MCG/0.5 ML SYRINGE IM ONE (09:00)
[2023-09-18] MEDS: Aspirin Chewable 81 MG TAB PO SCH (09:08)
[2023-09-18] MEDS: Atorvastatin Calcium 20 MG TAB PO SCH (09:08)
[2023-09-18] MEDS: Famotidine 20 MG TAB PO SCH (09:08)
[2023-09-18] MEDS: Lisinopril 10 MG TAB PO SCH ×2 (09:08→20:47)
[2023-09-18] MEDS: Vancomycin (BATCH) 1.5 GM in Premix 1 BAG IVPB SCH (20:47)
[2023-09-19] MEDS: Piperacillin/Tazobactam 3.375 GM in Sodium Chloride 0.9% 100 ML IVPB SCH ×3 (00:14→16:33)
[2023-09-19 05:53] LABS: #Eosinphils 0.1 thou/uL (0.0-0.7); #Monocytes 0.6 thou/uL (0.11-0.59); %Basophils 0.8 % (0.0-1.0); %Eosinophils 2.1 % (0.0-10.0); %Lymphocytes 22.6 % (21.0-51.0); %Monocytes 12.1 % (0.0-10.0); %Neutrophils 61.8 % (42.0-75.0); Hematocrit 38.4 % (42.0-52.0); Hemoglobin 13.5 g/dL (14.0-18.0); Mean Corpuscular HGB CONC 35.2 g/dL (32.0-36.0); Mean Corpuscular Hemoglobin 33.9 pg (27.0-31.0); Mean Corpuscular Volume 96.5 fl (78.0-98.0); Mean Platelet Volume 10.2 fL (7.4-10.4); Platelet Count 161 10x3/uL (130-400); RBC Distribution Width 12.8 % (11.5-14.5); Red Blood Cell (RBC) Count 3.98 mill/uL (4.70-6.10); White Blood Cell (WBC) Count 4.9 10x3/uL (4.8-10.8)
[2023-09-19 06:21] LABS: Anion Gap 11 mmol/L (10-20); BUN (Urea Nitrogen) 11 mg/dL (8.4-25.7); Calc. Creatinine Clearance 73 mL/min (70-130); Calcium 8.4 mg/dL (7.8-10.44); Carbon Dioxide 20 mmol/L (23-31); Chloride 109 mmol/L (98-107); Estimated GFR 83; Glucose 104 mg/dL (83-110); Potassium 3.6 mmol/L (3.5-5.1); Sodium 136 mmol/L (136-145)
[2023-09-19] MEDS: Aspirin Chewable 81 MG TAB PO SCH (08:25)
[2023-09-19] MEDS: Lisinopril 10 MG TAB PO SCH ×2 (08:25→21:16)
[2023-09-19] MEDS: Atorvastatin Calcium 20 MG TAB PO SCH (08:25)
[2023-09-19] MEDS: Vancomycin (BATCH) 1.5 GM in Premix 1 BAG IVPB SCH ×2 (21:16→23:30)
[2023-09-19] MEDS ORDERED: Famotidine 20 MG TAB PO SCH (22:00)
[2023-09-19 22:52] LABS: Vancomycin, Trough 10.1 ug/mL
[2023-09-20] MEDS: Piperacillin/Tazobactam 3.375 GM in Sodium Chloride 0.9% 100 ML IVPB SCH ×3 (01:45→16:07)
[2023-09-20 06:08] LABS: #Basophils 0.1 thou/uL (0.0-0.2); #Eosinphils 0.2 thou/uL (0.0-0.7); #Monocytes 0.5 thou/uL (0.11-0.59); #Neutrophils 2.2 thou/uL (1.40-6.50); %Basophils 1.2 % (0.0-1.0); %Eosinophils 4.9 % (0.0-10.0); %Lymphocytes 31.1 % (21.0-51.0); %Monocytes 11.6 % (0.0-10.0); %Neutrophils 50.3 % (42.0-75.0); Hematocrit 42.1 % (42.0-52.0); Hemoglobin 14.6 g/dL (14.0-18.0); Mean Corpuscular HGB CONC 34.7 g/dL (32.0-36.0); Mean Corpuscular Hemoglobin 33.8 pg (27.0-31.0); Mean Corpuscular Volume 97.5 fl (78.0-98.0); Mean Platelet Volume 9.5 fL (7.4-10.4); Platelet Count 195 10x3/uL (130-400); RBC Distribution Width 12.9 % (11.5-14.5); Red Blood Cell (RBC) Count 4.32 mill/uL (4.70-6.10); White Blood Cell (WBC) Count 4.3 10x3/uL (4.8-10.8)
[2023-09-20] MEDS: Aspirin Chewable 81 MG TAB PO SCH (08:33)
[2023-09-20] MEDS: Lisinopril 10 MG TAB PO SCH ×2 (08:33→19:44)
[2023-09-20] MEDS: Atorvastatin Calcium 20 MG TAB PO SCH (08:33)
[2023-09-20] MEDS: CO Q-10 CAPSULE 100 MG PO SCH (19:44)
[2023-09-20] MEDS: Vancomycin (BATCH) 1.5 GM in Premix 1 BAG IVPB SCH (19:45)
[2023-09-20] MEDS ORDERED: Tamsulosin HCl 0.4 MG CAP PO SCH (21:00)
[2023-09-20] MEDS ORDERED: Famotidine 20 MG TAB PO SCH (21:00)
[2023-09-21] MEDS: Piperacillin/Tazobactam 3.375 GM in Sodium Chloride 0.9% 100 ML IVPB SCH ×2 (01:07→08:11)
[2023-09-21] MEDS: CO Q-10 CAPSULE 100 MG PO SCH (08:13)
[2023-09-21] MEDS: Aspirin Chewable 81 MG TAB PO SCH (08:14)
[2023-09-21] MEDS: Atorvastatin Calcium 20 MG TAB PO SCH (08:14)
[2023-09-21] MEDS: Lisinopril 10 MG TAB PO SCH (08:14)
[2023-09-21 08:33] VITALS: BP 151/82; TEMP 98.1
[2023-09-21] MEDS ORDERED: Isosorbide Mononitrate 30 MG ER.TAB PO SCH (09:00)
== END 2023-09-21 12:10 | disposition home or self-care (01) | DRG 872 ==
LOC: ERS 15:56 → T4-A 17:37
PROVIDERS: ADMIT Internal Medicine; ATTEND Family Medicine
DX: A41.9 Sepsis, unspecified organism (principal); L03.116 Cellulitis of left lower limb; K21.9 Gastro-esophageal reflux disease without esophagitis; I10 Essential (primary) hypertension; E78.5 Hyperlipidemia, unspecified; C61 Malignant neoplasm of prostate; I25.10 Atherosclerotic heart disease of native coronary artery without angina pectoris; D72.828 Other elevated white blood cell count; Z79.82 Long term (current) use of aspirin; Z95.5 Presence of coronary angioplasty implant and graft; Z79.899 Other long term (current) drug therapy
CPT/HCPCS: 36415; 80048; 80053; 80202; 83605; 85025; 85379; 85610; 85730; 87040; 96365; 96367; J0692; J1650; J2543; J3370; J3370-JW; J3490

== ENCOUNTER 2024-01-14 00:40 | Emergency (ER) | payer MEDICARE ==
[2024-01-14 01:40] LABS: #Eosinphils 0.1 thou/uL (0.0-0.7); #Monocytes 0.6 thou/uL (0.11-0.59); #Neutrophils 2.3 thou/uL (1.40-6.50); %Basophils 0.9 % (0.0-1.0); %Lymphocytes 30.1 % (21.0-51.0); %Monocytes 13.8 % (0.0-10.0); %Neutrophils 51.7 % (42.0-75.0); Hematocrit 42.7 % (42.0-52.0); Hemoglobin 14.9 g/dL (14.0-18.0); Mean Corpuscular HGB CONC 34.9 g/dL (32.0-36.0); Mean Corpuscular Hemoglobin 33.9 pg (27.0-31.0); Mean Corpuscular Volume 97.3 fl (78.0-98.0); Mean Platelet Volume 9.8 fL (7.4-10.4); Platelet Count 169 10x3/uL (130-400); RBC Distribution Width 12.7 % (11.5-14.5); Red Blood Cell (RBC) Count 4.39 mill/uL (4.70-6.10); White Blood Cell (WBC) Count 4.4 10x3/uL (4.8-10.8)
[2024-01-14 01:56] LABS: ALT (SGPT) 15 U/L (8-55); AST (SGOT) 20 U/L (5-34); Albumin 3.8 g/dL (3.4-4.8); Alkaline Phosphatase 74 U/L (40-110); Anion Gap 12 mmol/L (10-20); BUN (Urea Nitrogen) 18 mg/dL (8.4-25.7); Bilirubin, Total 0.7 mg/dL (0.2-1.2); Calc. Creatinine Clearance 0 mL/min (70-130); Calcium 8.9 mg/dL (7.8-10.44); Carbon Dioxide 24 mmol/L (23-31); Chloride 106 mmol/L (98-107); Estimated GFR 67; Globulin 2.3 g/dL (2.4-3.5); Glucose 100 mg/dL (83-110); Magnesium 1.9 mg/dL (1.6-2.6); Potassium 4.1 mmol/L (3.5-5.1); Protein, Total 6.1 g/dL (5.8-8.1); Sodium 138 mmol/L (136-145)
[2024-01-14 02:00] LABS: Troponin I 0.014 ng/mL (< 0.028)
[2024-01-14] MEDS ORDERED: Nitroglycerin 2% Ointment 1 INCH/1 GM Packet ONE (02:02)
[2024-01-14] MEDS ORDERED: cloNIDine 0.1 MG TAB ONE (03:00)
== END 2024-01-14 03:31 | disposition home or self-care (01) ==
LOC: ERS 00:40
DX: I16.0 Hypertensive urgency (principal); I10 Essential (primary) hypertension; E78.5 Hyperlipidemia, unspecified; Z79.899 Other long term (current) drug therapy
CPT/HCPCS: 36415; 70450; 71045; 80053; 83735; 83880; 84484; 85025; 93005